=== PATIENT | male | born 1975 | race Caucasian/White ===

== ENCOUNTER 2021-09-21 16:37 | Emergency (ER) | payer BC, SELFPAY ==
[2021-09-21 20:07] VITALS: BP 155/101; PULSE 86; RESP 18; TEMP 36.4; O2SAT 99; BMI 33.0
[2021-09-22 02:41] VITALS: BP 122/68; PULSE 98; RESP 18; TEMP 37.3; O2SAT 98
[2021-09-22] MEDS: Diphth,Pertus(ACell),Tet Adult 0.5 ML SYRINGE IM (03:46)
--- NOTE | 2021-09-22 03:53 | PC.NURSE ---
Medicated per MAR with Tetanus, awaiting wound repair.
--- NOTE | 2021-09-22 04:41 | ED.GENADULT ---
HPI - General Adult General Chief complaint: Back Pain/Injury Stated complaint: finger lac Time Seen by Provider: 09/22/21 03:30 Source: patient Mode of arrival: ambulatory History of Present Illness HPI narrative: Injury to left index finger with partial nail removal and secured as a splint to the nail bed with for 4-0 sutures after anesthetic was applied and patient instructed to follow-up with his primary care provider. He received a Tdap. Related Data Allergies Allergy/AdvReac Type Severity Reaction Status Date / Time No Known Allergies Allergy Unverified 06/13/20 15:18 Review of Systems Review of Systems: Pertinent positives and negatives as stated in HPI 10 point review of systems otherwise negative. [facility] Past Medical History Source: nursing notes reviewed Social History Social History Advance Directives: No Advance Directives Information Provided: No Physical Exam Vital Signs: Vital Signs: Last Vital Signs Temp 99.4 F 09/22/21 04:42 Pulse 94 09/22/21 04:42 Resp 16 09/22/21 04:42 BP 113/66 09/22/21 04:42 Pulse Ox 96 09/22/21 04:42 BMI result Body Mass Index 33.0 VITAL SIGNS: Reviewed. GENERAL: Well developed, well nourished, in no acute distress. HEAD: Normocephalic/atraumatic EYES: PERRLA, EOMI LUNGS: Normal breath sounds. SpO2<96> CARDIOVASCULAR: Regular rate and rhythm without noted murmurs ABDOMEN: Soft, non-tender, non-distended with bowel sounds. LEFT FINGER NAILBED: Patient with injury and partial removal fingernail but base remains in place otherwise no injury noted NEUROLOGIC: Alert and oriented x 4. Course Course Course Narrative: 46-year-old male with history and clinical presentation consistent with subungual injury. Patient had 4 sutures placed utilizing the nail as a splint wall the new nail grows in. Patient also received Tdap. Procedures Laceration Laceration 1: Site: hand Side (If applicable): left Size (cm): 2 Description: linear Depth: simple, single layer Local Anesthetic: lidocaine 2% Amount of anesthesia used (mL): 5 Pre-repair: wound explored and irrigated extensively Skin layer closed with: nylon Size (cm): 4-0 Number of sutures: 4 Technique: simple, interrupted Discharge Plan Discharge Clinical Impression: Superficial laceration of fingernail Patient Disposition: Home, Self-Care Instructions: Care For Your Stitches (ED), Laceration (ED) Additional Instructions: 1. Tylenol 1000 mg, orally, every 6 hours as needed for pain control. Do not exceed 4000 mg within 24 hours. 2. Ibuprofen 400 mg, orally with milk or food, every 6 hours as needed for pain control. 3. Also keep finger elevated above heart when possible to help reduce pressure and subsequent pain buildup and the tip of the finger. 4. Please follow-up with your primary care provider in the next 3-4 days for re-evaluation and suture removal in approximately 5-7 days. Return to the ER for worsening symptoms. Interventions: ED Discharge Assessment Last Done: 09/22/21 05:06 Discharge Date/Time: 09/22/21 05:07
[2021-09-22 04:42] VITALS: BP 113/66; PULSE 94; RESP 16; TEMP 37.4; O2SAT 96
[2021-09-22] MEDS: Simethicone 80 MG TAB.CHEW PO (04:51)
== END 2021-09-22 05:07 | disposition home or self-care (01) ==
PROVIDERS: Emergency Provider Student in an Organized Health Care Education/Training Program
DX: S61.311A Laceration without foreign body of left index finger with damage to nail, initial encounter (principal); X58.XXXA Exposure to other specified factors, initial encounter; Y93.9 Activity, unspecified; Y92.9 Unspecified place or not applicable; Y99.9 Unspecified external cause status
CPT/HCPCS: 12001; 90471; 90715; 99283; 99284